=== PATIENT | male | born 1990 | race Caucasian/White ===

== ENCOUNTER 2023-07-04 13:23 | Emergency (ER) | payer MEDICAID ==
[~2023-07-04] VITALS: Ht 188 cm; Wt 113.6 kg
[2023-07-04 13:34] VITALS: TEMP 98
[2023-07-04 16:36] VITALS: BP 138/115; PULSE 64
== END 2023-07-04 16:40 | disposition home or self-care (01) ==
LOC: COL.ER 13:23
DX: S50.02XA Contusion of left elbow, initial encounter (principal); F17.210 Nicotine dependence, cigarettes, uncomplicated; Z28.310 Unvaccinated for COVID-19; W01.0XXA Fall on same level from slipping, tripping and stumbling without subsequent striking against object, initial encounter